=== PATIENT | female | born 1995 | race Caucasian/White ===

== ENCOUNTER 2018-01-13 09:44 | Emergency (ER) | payer OTHER, SELFPAY ==
[2018-01-13 09:49] VITALS: BMI 22.6
[2018-01-13 09:50] VITALS: BP 101/69; PULSE 88; RESP 18; TEMP 98.6; O2SAT 100
--- NOTE | 2018-01-13 10:07 | ED PDOC ---
HPI: General Adult Time Seen by Provider: 01/13/18 10:07 Chief Complaint (Provider): breast lump History Per: Patient Additional Complaint(s): 23-year-old female with no past medical history presents to emergency department with a lump to right breast that she first noticed one month ago. Patient presents today for further evaluation. She denies any acute pain at this time. Patient states she has pain intermittently to affected area. If fever or chills, no redness, drainage or bleeding. PMD: none Past Medical History Reviewed: Historical Data, Nursing Documentation, Vital Signs Vital Signs: Last Vital Signs Temp 98.6 F 01/13/18 09:49 Pulse 88 01/13/18 09:49 Resp 18 01/13/18 09:49 BP 101/69 01/13/18 09:49 Pulse Ox 100 01/13/18 10:50 - Medical History PMH: No Chronic Diseases - Surgical History Surgical History: No Surg Hx - Family History Family History: States: No Known Family Hx - Living Arrangements Living Arrangements: With Family - Social History Current smoker - smoking cessation education provided: No Alcohol: None Drugs: Denies - Home Medications Home Medications: Ambulatory Orders Medication Instructions Recorded No Known Home Med 01/13/18 - Allergies Allergies/Adverse Reactions: Allergies Allergy/AdvReac Type Severity Reaction Status Date / Time No Known Allergies Allergy Verified 01/13/18 10:12 Review of Systems ROS Statement: Except As Marked, All Systems Reviewed And Found Negative Constitutional: Negative for: Fever Skin: Positive for: Other (right breast lump x 1 month) Physical Exam - Reviewed Nursing Documentation Reviewed: Yes Vital Signs Reviewed: Yes - Physical Exam Appears: Positive for: Well, Non-toxic, No Acute Distress Skin: Negative for: Rash Eye Exam: Positive for: Normal appearance Cardiovascular/Chest: Positive for: Regular Rate, Rhythm. Negative for: Chest Non Tender (Approximately 2 cm fluctuance mass noted to the right lateral breast in the upper outer quadrant, no external erythema, no skin dimpling, no other masses are palpated, left breast within normal limits) Extremity: Positive for: Normal ROM Neurologic/Psych: Positive for: Alert, Oriented - Laboratory Results Urine POC: Negative (Patient declined test, she states she is certain she is not pertinent) - ECG O2 Sat by Pulse Oximetry: 100 Pulse Ox Interpretation: Normal Medical Decision Making Medical Decision Makin-year-old female with right breast lump 1 month Patient was referred to clinic and instructed to make appointment for mammogram for further evaluation. Disposition - Clinical Impression Clinical Impression: Cyst of breast - Patient ED Disposition Is Patient to be Admitted: No Counseled Patient/Family Regarding: Diagnosis, Need For Followup - Disposition Referrals: [facility] [Outside] Disposition: Routine/Home Disposition Time: 10:45 Condition: STABLE Additional Instructions: Take [id number] Tylenol or Advil for pain as needed. Follow-up with clinic to arrange for outpatient mammogram. Instructions: Common Breast Problems
== END 2018-01-13 11:15 | disposition home or self-care (01) ==
LOC: H.ER 09:44
DX: N60.02 Solitary cyst of left breast (principal)